=== PATIENT | male | born 1980 | race African-American/Black ===

== ENCOUNTER 2018-01-10 10:27 | Emergency (ER) | payer OTHER ==
[2018-01-10 10:58] VITALS: TEMP 98.5; BMI 40.1
[2018-01-10 11:01] LABS: BASO % 2.7 % (0-2.0); EOS % 2.4 % (0-4.5); HEMATOCRIT 42.6 % (35.4-49); HEMOGLOBIN 14.5 GM/dl (11.7-16.9); LYMPH % 23.6 % (8-40); MCHC 34.1 g/dl (32.0-35.9); MEAN CELL VOLUME 82.2 fl (80-96); MEAN PLT VOLUME 8.2 fl (7.5-11.1); MONO % 6.3 % (3.8-10.2); PLATELET COUNT 361 K/MM3 (134-434); RBC 5.18 M/mm3 (4.00-5.60); RDW 13.2 % (11.9-15.9); WHITE BLOOD COUNT 5.2 K/mm3 (4.0-10.8)
--- NOTE | 2018-01-10 11:04 | PDOC ---
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 Pt reported that he felt well this morning. Was driving into work when he felt sudden onset of rapid palpitations while driving. Subsequently, felt sharp stabby type of chest discomfort but no SOB. No n/v/diaphoresis. Resolved after approximately 40 minutes. This occurred earlier this morning. Pt reports that he's been having these symptoms for the last several weeks. Some weeks, it would occur several times a day, some other weeks where would occur one day and not on other days. Would have similar type of chest discomfort. Currently denies symptoms. Never visited a physician for this. When patient was a child, was on atenolol for an "arrhythmia" which patient does not recall what it was. Not currently on medications. Denies hx of PEs, unilateral calf swelling, DVT, recent surgery, cancer, or hemoptysis. Past History - Past Medical History Allergies/Adverse Reactions: Allergies Allergy/AdvReac Type Severity Reaction Status Date / Time No Known Allergies Allergy Verified 01/10/18 10:32 Home Medications: Ambulatory Orders NK [No Known Home Medication] 01/10/18 Cardiac Disorders: Yes (Arrythmia) COPD: No Other medical history: SHOULDER DISLOCATION - Suicide/Smoking/Psychosocial Hx Smoking Status: No Smoking History: Never smoked Have you smoked in the past 12 months: No Number of Cigarettes Smoked Daily: 0 Hx Alcohol Use: No Drug/Substance Use Hx: No Substance Use Type: None Review of Systems - Review of Systems Able to Perform ROS?: Yes Comments:: 01/10/18 11:02 GENERAL/CONSTITUTIONAL: No fever, weakness. HEAD, EYES, EARS, NOSE AND THROAT: No change in vision. No ear pain or discharge. No sore throat. CARDIOVASCULAR: +palpitations, chest discomfort RESPIRATORY: No cough, wheezing, or hemoptysis. GASTROINTESTINAL: No abdominal pain, nausea, vomiting, diarrhea, or decreased PO intolerance. GENITOURINARY: No dysuria, frequency, or change in urination. MUSCULOSKELETAL: No joint or muscle swelling or pain. No neck or back pain. SKIN: No rash NEUROLOGIC: No headache, vertigo, loss of consciousness, or change in strength/ sensation. ENDOCRINE: No increased thirst. No abnormal weight change. HEMATOLOGIC/LYMPHATIC: No anemia, easy bleeding, or history of blood clots. ALLERGIC/IMMUNOLOGIC: No hives or skin allergy. *Physical Exam - Vital Signs Last Vital Signs Temp Pulse Resp BP Pulse Ox 98.5 F 91 H 17 120/90 96 01/10/18 10:28 01/10/18 10:52 01/10/18 10:52 01/10/18 10:52 01/10/18 10:52 - Physical Exam Comments: 01/10/18 11:02 GENERAL: Awake, alert, and fully oriented, in no acute distress. HEAD: No signs of trauma EYES: PERRLA, EOMI, sclera anicteric, conjunctiva clear ENT: Auricles normal inspection, hearing grossly normal, nares patent NECK: Normal ROM, supple LUNGS: Breath sounds equal, clear to auscultation bilaterally. No wheezes, and no crackles HEART: Regular rate and rhythm, normal S1 and S2, no murmurs, rubs or gallops ABDOMEN: Soft, nontender. No guarding, no rebound. No masses EXTREMITIES: Normal range of motion, no edema. No clubbing or cyanosis. No cords, erythema, or tenderness NEUROLOGICAL: Cranial nerves II through XII grossly intact. Normal speech, normal gait SKIN: Warm, Dry, normal turgor, no rashes or lesions noted. Heart Score/ECG Review #1 ECG reviewed & interpreted by me at: 10:35 01/10/18 11:04 NSR 94, no std/cuco, TWI III, normal axis, normal intervals, QTC 442 msec. no brugada, no HOCM, no WPW ED Treatment Course - LABORATORY CBC & Chemistry Diagram: 01/10/18 10:44 01/10/18 10:44 - RADIOLOGY Radiology Studies Ordered: Category Date Time Status CHEST PA & LAT [RAD] Stat Radiology 01/10/18 10:44 Ordered Medical Decision Making - Medical Decision Making 01/10/18 11:03 Vital Signs Temp Pulse Resp BP Pulse Ox 98.5 F 91 H 17 120/90 96 01/10/18 10:28 01/10/18 10:52 01/10/18 10:52 01/10/18 10:52 01/10/18 10:52 Pt is currently asymptomatic. Has been having this for several weeks. Will need to place patient on quality assurance monitor chassis to evaluate for arrhythmias such as SVT, atrial fibrillation. ECG is reassuring with no acute findings. Will send labs including troponin, though the history does not seem to suggest ACS as the primary cause. Once results return, will consult cardiology for disposition. 01/10/18 12:32 Labs and chest xray reviewed. No acute findings. Case discussed with Dr. Nathaniel Arroyo. Requests we add on TSH. Pt can follow up with him as an outpatient with holter and echo. Pt reports feeling asymptomatic. Reports of the copy given to him. Pt will follow up as an outpatient. Return precautions given. I discussed the physical exam findings, ancillary test results and final diagnoses with the patient. I answered all of the patient's questions. The patient was satisfied with the care received and felt comfortable with the discharge plan and treatment plan. The patient will call their primary care physician within 24 hours to arrange follow-up and will return to the Emergency Department with any new, persistant or worsening symptoms. *DC/Admit/Observation/Transfer Diagnosis at time of Disposition: Palpitations - Discharge Dispostion Disposition: HOME Condition at time of disposition: Good Admit: No - Referrals Referrals: Nathaniel Arroyo MD [Staff Physician] - - Patient Instructions Printed Discharge Instructions: DI for Palpitations Additional Instructions: Please call to schedule an appointment. They are expecting you as their patient. They are part of the [facility] network. If you have worsening chest pain or shortness of breath, please call your doctor or return to the ER. - Post Discharge Activity
[2018-01-10 11:20] LABS: ALBUMIN 4.2 g/dl (3.5-5.0); ALK PHOS 57 U/L (32-92); ANION GAP 8 (8-16); BILIRUBIN,TOTAL 0.5 mg/dl (0.2-1.0); BLOOD UREA NITROGEN 11 mg/dl (7-18); CALCIUM 8.8 mg/dl (8.4-10.2); CHLORIDE 102 mmol/L (98-107); CO2 25 mmol/L (22-28); GLUCOSE,RANDOM 123 mg/dl (74-106); POTASSIUM 3.8 mmol/L (3.5-5.1); SGOT/AST 33 U/L (10-42); SGPT/ALT 41 U/L (10-40); SODIUM 135 mmol/L (136-145); TOT PROT 7.3 g/dl (6.4-8.3)
[2018-01-10 12:32] VITALS: BP 140/93; PULSE 92
--- NOTE | 2018-01-12 13:04 | EKG ---
Test Reason : Blood Pressure : / mmHG Vent. Rate : 094 BPM Atrial Rate : 094 BPM P-R Int : 156 ms QRS Dur : 100 ms QT Int : 354 ms P-R-T Axes : 042 041 012 degrees QTc Int : 442 ms NORMAL SINUS RHYTHM NORMAL ECG NO PREVIOUS ECGS AVAILABLE Confirmed by JACLYN COHEN MD ([id number]) on 01/12/2018 1:04:06 PM Referred By: KUN Confirmed By:JACLYN COHEN MD
== END 2018-01-10 12:42 | disposition home or self-care (01) ==
LOC: FER 10:27
DX: R00.2 Palpitations (principal)
CPT/HCPCS: 36415; 71046-TC-FY; 80053; 84443; 84484; 85025; 93005; 99285-25